=== PATIENT | male | born 1955 | race Caucasian/White ===

== ENCOUNTER 2022-09-25 11:16 | Emergency (ER) | payer OTHER ==
[~2022-09-25] VITALS: Ht 177.8 cm; Wt 99.8 kg
[2022-09-25] MEDS ORDERED: COZAAR100 MG PO (12:01)
[2022-09-25] MEDS ORDERED: NIFEDIPINE20 MG PO (12:01)
[2022-09-25] MEDS ORDERED: SIMVASTATIN5 MG PO (12:02)
== END 2022-09-25 17:44 | disposition home or self-care (01) ==
LOC: ER 11:16
DX: R42 Dizziness and giddiness (principal); I10 Essential (primary) hypertension; R07.89 Other chest pain; Z20.822 Contact with and (suspected) exposure to COVID-19